=== PATIENT | female | born 1965 | race Two or more races ===

== ENCOUNTER 2024-11-16 07:12 | Emergency (ER) | payer MEDICARE, SELFPAY ==
[2024-11-16 07:13] VITALS: BMI 30.2
[2024-11-16 07:26] VITALS: BP 147/96; PULSE 94; RESP 19; TEMP 37.2; O2SAT 96
--- NOTE | 2024-11-16 07:32 | XR_ITS ---
Examination: PA lateral chest 2 views Technique: Upright PA lateral chest 2 views Exam date and time: November 16, 2024 0747 hrs. Indications: Coughing fever beginning 5 days ago. Findings: Normal heart size CABG No pneumonia or pulmonary edema Impression: No pneumonia identified
--- NOTE | 2024-11-16 07:33 | PD.EDRME ---
Rapid Medical Screening Exam RME Arrival date/time: 11/16/24 07:12 This is a 59-year-old female history of liver transplant on immunosuppressants presents to the emergency department with complaints of bodyaches, fever fatigue and a cough. I have greeted and performed a focused initial assessment of this patient. Initial appropriate labs ordered at this time. A comprehensive ED assessment and evaluation of the patient and analysis of all test and completion of medical decision making process will be conducted by additional ED provider. Chief Complaint: Flu Like Symptoms Time Seen by Provider: 11/16/24 07:21 Vital signs: Vital Signs Temperature 99.0 F 11/16/24 07:26 Pulse Rate 94 11/16/24 07:26 Respiratory Rate 19 11/16/24 07:26 Blood Pressure 147/96 H 11/16/24 07:26 Pulse Oximetry (%) 96 11/16/24 07:26 Oxygen Delivery Method Room Air 11/16/24 07:26
[2024-11-16] MEDS: ACETAMINOPHEN 500 MG TABLET 1000 MG PO (07:37)
[2024-11-16 08:07] LABS: Collection Type, Urine Clean Catch
[2024-11-16 08:10] LABS: Basophils % (Auto) 0 % (0-2.5); Eosinophils # (Auto) 0.1 Thou/mm3 (0.0-0.5); Eosinophils % (Auto) 1 % (0-10); Hematocrit 40.7 % (36.0-46.0); Hemoglobin 13.7 g/dL (12.0-16.0); Immature Granulocytes % (Auto) 0 % (0-0); Immature Granulocytes Auto 0.03 Thou/mm3 (0.00-0.00); Lymphocytes # (Auto) 0.9 Thou/mm3 (1.0-4.8); Lymphocytes % (Auto) 10 % (10-50); Mean Corpuscular HGB Conc 33.7 g/dl (31.0-37.0); Mean Corpuscular Hemoglobin 27.8 pg (25.0-35.0); Mean Corpuscular Volume 83 fL (80-100); Monocytes # (Auto) 0.5 Thou/mm3 (0.0-0.8); Monocytes % (Auto) 5 % (0-12); Neutrophils # (Auto) 7.1 Thou/mm3 (1.8-7.7); Neutrophils % (Auto) 83 % (37-80); Nucleated Red Blood Cell % 0 /100 WBC (0); Platelet Count 142 Thou/mm3 (140-440); RDW Standard Deviation 38.2 fL (36.4-46.3); Red Blood Count 4.93 Miln/mm3 (4.00-5.20); White Blood Count 8.5 Thou/mm3 (3.6-11.0)
[2024-11-16 08:17] LABS: Bacteria,Urine Rare; Bilirubin,Urine Negative (Negative); Blood,Urine 1+ (Negative); Clarity,Urine Clear (Clear/Hazy); Color,Urine Lt-Yellow (Lt Yel-Yel); Glucose, Urine Negative (Negative); Ketones,Urine Negative (Negative); Leukocyte Esterase,Urine Negative (Negative); Nitrite,Urine Negative (Negative); Protein,Urine Trace (Neg - Trace); RBC,Urine 4 /hpf (0-3); Specific Gravity,Urine 1.012 (1.001-1.035); Squamous Epithelial Cell,Urine 3 /hpf (0-5); Urobilinogen,Urine Negative mg/dL (0.0-1.0); WBC,Urine 3 /hpf (0-5)
[2024-11-16 08:31] LABS: Alanine Aminotransferase 16 U/L (10-49); Albumin, Serum 5.1 gm/dL (3.4-4.8); Albumin/Globulin Ratio 1.4 (1.2-2.2); Alkaline Phosphatase 199 U/L (46-116); Anion Gap 7 (7-16); Aspartate Amino Transferase 19 U/L (0-34); BUN/Creatinine Ratio 15 Ratio (12-20); Bilirubin,Total 0.5 mg/dL (0.3-1.2); Blood Urea Nitrogen 15 mg/dL (9-23); Calcium 9.9 mg/dL (8.3-10.6); Calcium (Corrected) 9.9 mg/dL (8.5-10.1); Carbon Dioxide 24.6 mMol/L (20.0-31.0); Chloride 102 mMol/L (98-107); Estimated Creatinine Clearance 54.5 mL/min (>60); Globulin 3.7 gm/dL (2.3-3.5); Glucose 179 mg/dL (74-106); Lipase 74 U/L (12-53); Osmolality,Calculated 273 (275-295); Potassium 4.4 mMol/L (3.4-5.1); Sodium 134 mMol/L (136-145); Total Protein 8.8 gm/dL (5.7-8.2); eGFR > 60 See Note
--- NOTE | 2024-11-16 09:03 | EDNOTE_ITS ---
Upper Respiratory Inf. RME/HPI General Chief Complaint: Flu Like Symptoms Stated Complaint: FLU SYMPTOMS FOR 5 DAYS Time Seen by Provider: 11/16/24 07:21 Source: patient Arrival date/time: 11/16/24 07:12 this is a 59-year-old female significant past medical history of bodyaches, fever rhinorrhea for 4 days. Patient denies any other associated symptoms or aggravating factors. No modifying factors, no radiation, no migration. No reported chest pain, dyspnea Mode of arrival: ambulatory RME / HPI RME / HPI Narrative: 11/16/24 07:12 This is a 59-year-old female history of liver transplant on immunosuppressants presents to the emergency department with complaints of bodyaches, fever fatigue and a cough. I have greeted and performed a focused initial assessment of this patient. Initial appropriate labs ordered at this time. A comprehensive ED assessment and evaluation of the patient and analysis of all test and completion of medical decision making process will be conducted by additional ED provider. Related Data Home Medications ?Medication ?Instructions ?Recorded ?Confirmed metformin 500 mg tablet,extended 500 mg PO BID 06/07/19 09/08/20 release 24 hr tacrolimus 1 mg capsule, 3 mg PO QAM 06/07/19 09/08/20 immediate-release ursodiol 300 mg capsule 900 mg PO BID 06/07/19 09/08/20 metoprolol tartrate 25 mg tablet 12.5 mg PO BID 06/08/19 09/08/20 magnesium 250 mg tablet 500 mg PO BID 02/08/20 09/08/20 mycophenolate mofetil 500 mg 1,000 mg PO BID 02/08/20 09/08/20 tablet (CellCept) tacrolimus 1 mg capsule, 4 mg PO HS 09/08/20 09/08/20 immediate-release Previous Rx's ?Medication ?Instructions ?Recorded clopidogrel 75 mg tablet (Plavix) 75 mg PO QDAY #30 tabs 09/12/20 Allergies Allergy/AdvReac Type Severity Reaction Status Date / Time Iodinated Contrast Media Allergy Severe Difficulty Verified 11/16/24 07:16 Breathing Review of Systems Review of Systems Systems Reviewed: All systems reviewed, normal except as documented Narrative Review of Systems: Gen: + fever, no chills, no weight loss, + Body aches +congestion, no sore throat PULM: No shortness of breath, no cough, no congestion CV: No chest pain, no dyspnea on exertion, no palpitations GI: No nausea, no vomiting, no diarrhea, no pain, no constipation : No frequency, no urgency,? no dysuria Musc/skel: No joint pain, no back pain Skin: No rash? Psyc: No hallucinations, no depression Heme/Lymph: No easy bleeding or bruising tendencies Neuro: No weakness, no headache ED Exam Narrative Physical exam: General: Sittiing in Exam table in no acute distress, answering questions appropriately HENT: normocephalic, atraumatic, EOMI, PERRLA, moist mucous membranes Chest: chest wall is nontender Cardiac: regular rate and rhythm, normal S1 and S2, no murmurs, rubs, or gallops, capillary refill ?2 seconds Pulmonary: clear to auscultation bilaterally, no wheezing, crackles, or rhonchi Abdominal: active bowel sounds, soft, nontender, nondistended Neuro: A&OX3, CN II-XII intact, sensation grossly intact bilaterally in UE and LE. Skin: no rashes, no ecchymosis Ext: no lower extremity edema Course Quality Measures none Orders Category Date Time Status Bedside COVID-19 Antigen Test NOW Care 11/16/24 07:32 Completed Bedside Influenza A&B Antigen Test NOW Care 11/16/24 07:32 Completed XR chest 2V Stat Exams 11/16/24 07:32 Completed CBC Stat Lab 11/16/24 08:01 Completed Comprehensive Metabolic Panel Stat Lab 11/16/24 08:01 Completed Lipase Stat Lab 11/16/24 08:01 Completed Urinalysis Stat Lab 11/16/24 07:46 Completed Acetaminophen Tab [Tylenol ES Tab] Med 11/16/24 07:32 Discontinued 1,000 mg PO X1 ONE Vital Signs Vital signs: Vital Signs Temperature 99.0 F 11/16/24 07:26 Pulse Rate 94 11/16/24 07:26 Respiratory Rate 19 11/16/24 07:26 Blood Pressure 147/96 H 11/16/24 07:26 Pulse Oximetry (%) 96 11/16/24 07:26 Oxygen Delivery Method Room Air 11/16/24 07:26 Upper Respiratory Infection MDM Narrative MDM Narrative:: Patient presents with symptoms and exam consistent with influenza. The pros and cons of taking Tamiflu were discussed with the patient. Joint decision making was made to not take Tamiflu. patient did call her liver transplant doctor and agrees with Tamiflu medication Tamiflu medication sent to pharmacy? Patient is non-toxic appearing, appears to be well-hydrated and is breathing comfortably, without respiratory distress. No pneumonia visible on x-ray. Patient is appropriate for outpatient management with anti-pyretics and supportive care. Patient is comfortable with plan. Patient to follow up with PMD in 2 days. Strict return to ED precautions given. ?Patient verbalized understanding. Patient data External records reviewed:: [facility] previous records Clinical information provided by:: patient Social determinants that could affect healthcare access:: none Patient has the following chronic illnesses:: diabetes, liver How is presenting disease/condition affected by chronic disease/condition?: une ffected by Evaluation data The following diagnostics were reviewed and interpreted by me:: lab results and radiology exam(s) Lab and/or radiology exams considered but not ordered:: no Interpretation Summary: +influenza A Examination: PA lateral chest 2 views Technique: Upright PA lateral chest 2 views Exam date and time: November 16, 2024 0747 hrs. Indications: Coughing fever beginning 5 days ago. Findings: Normal heart size CABG No pneumonia or pulmonary edema Impression: No pneumonia identified Medications / Prescriptions Medications or Prescriptions considered but not ordered:: yes Tamiflu no antibiotics Medication administrations:: Medication Administration History Discontinued Medications Acetaminophen (Acetaminophen 500 Mg Tablet) 1,000 mg PO X1 ONE Stop: 11/16/24 07:33 Last Admin: 11/16/24 07:37 Dose: 1,000 mg Documented By: FC all medications administered and effective Consultations Consultation(s) initiated? (list below): No Diagnosis Upper Respiratory Differential Diagnosis: upper respiratory infection, sinusitis, viral infection, bronchitis, influenza and pharyngitis Most likely diagnosis given after review of the tests above:: influenza A Admission Indicated Admission indicated?: not indicated Admission Request Was there a request for admission?: No Disposition Plan Disposition Plan: Discharge Discharge Attestation Discharge Attestation: The patient and all family members were given an opportunity to ask questions and understood the discharge instructions. Discharge instructions specifically effects, indications for sooner follow up or return to the emergency department, and the expected course of current diagnosis. Patient condition: Stable Discharge Plan Plan Patient Disposition: HOME (Self Care) Patient condition on transfer: Stable Prescriptions/Referrals Prescriptions/Med Rec: No Action tacrolimus 1 mg capsule 3 mg PO QAM metformin 500 mg tablet extended release 24 hr 500 mg PO BID Patient Comments: TK 1 T PO QD ursodiol 300 mg Capsule 900 mg PO BID metoprolol tartrate 25 mg Tablet 12.5 mg PO BID tacrolimus 1 mg Capsule 4 mg PO HS clopidogrel [Plavix] 75 mg Tablet 75 mg PO QDAY Qty: 30 0RF mycophenolate mofetil [CellCept] 500 mg Tablet 1,000 mg PO BID magnesium 250 mg Tablet 500 mg PO BID Referrals: Juan Jose Huynh FNP-C [Primary Care Provider] - In 1 week Problem List Clinical Impression: Influenza A Patient/Caregiver Discharge Instructions Discharge Activity: activity as tolerated Education Materials: ED Influenza (Adult) Additional Instructions: Your rapid influenza test was positive. Start Tamiflu, antipyretics to pharmacy. Advised to increase hydration, warm tea and chicken rice soup can mover helper for throat pain. Please follow-up with your clinic 3-day follow-up. If you develop any type of respiratory distress or change in condition please go immediately to nearest emergency department Print Language: [place] Citizen Stand Alone Forms: Gabby Award Info., Patient Portal Info Letter PATRICIA/MATRIX INSPECTOR Supervising Physician PATRICIA/ROCIO Supervising Physician: Dr De Guzman
[2024-11-16 10:02] VITALS: BP 114/77; PULSE 88; RESP 20; TEMP 37.6; O2SAT 96
== END 2024-11-16 10:04 | disposition home or self-care (01) ==
PROVIDERS: Nurse Practitioner Primary Care; Emergency Provider Emergency Medicine; PCP Nurse Practitioner Family
DX: J10.1 Influenza due to other identified influenza virus with other respiratory manifestations (principal)
CPT/HCPCS: 36415; 71046; 80053; 81001; 83690; 85025; 87400; 87811; 99283; A9270

== ENCOUNTER 2025-10-30 07:30 | Observation (INO) | payer MEDICARE, SELFPAY ==
[2025-10-30 07:53] VITALS: BP 96/64; PULSE 91; RESP 16; TEMP 36.8; O2SAT 96; BMI 28.5
--- NOTE | 2025-10-30 08:09 | EKG_ITS ---
[facility] Test Date: 2025-10-30 Pat Name: RUDDY COURTNEY Department: Room: - Gender: Female Finance Officer: : 1965 Requested By: Soni Monae Order Number: [id number] Reading MD: Soni Monae Measurements Intervals [place] Rate: 78 P: 39 MO: 144 QRS: 8 QRSD: 89 T: 20 QT: 360 QTc: 410 Interpretive Statements SINUS RHYTHM Compared to ECG 03/04/2024 20:58:30 Myocardial infarct finding no longer present /store/S0/[id number]/ecg/[id number].pdf
--- NOTE | 2025-10-30 08:09 | XR_ITS ---
EXAMINATION: AP chest single view TECHNIQUE: AP portable upright chest single view Date and time: October 30, 2025, 0831 hours INDICATIONS: Chest pain today. FINDINGS: Normal heart size CABG No pneumonia or pulmonary edema. Moderate osteopenia IMPRESSION: No active disease
[2025-10-30] MEDS: ONDANSETRON INJ 2 MG/ML INJ 2 ML 4 MG IVP (08:28)
[2025-10-30 08:31] VITALS: PULSE 82
[2025-10-30 08:44] LABS: Collection Type, Urine Clean Catch
[2025-10-30 08:51] LABS: Basophils # (Auto) 0.0 Thou/mm3 (0.0-0.2); Basophils % (Auto) 0 % (0-2.5); Eosinophils # (Auto) 0.2 Thou/mm3 (0.0-0.5); Eosinophils % (Auto) 2 % (0-10); Hematocrit 45.3 % (36.0-46.0); Hemoglobin 15.3 g/dL (12.0-16.0); Immature Granulocytes Auto 0.04 Thou/mm3 (0.00-0.00); Lymphocytes # (Auto) 1.7 Thou/mm3 (1.0-4.8); Lymphocytes % (Auto) 15 % (10-50); Mean Corpuscular HGB Conc 33.8 g/dl (31.0-37.0); Mean Corpuscular Hemoglobin 28.2 pg (25.0-35.0); Mean Corpuscular Volume 84 fL (80-100); Monocytes # (Auto) 0.9 Thou/mm3 (0.0-0.8); Monocytes % (Auto) 8 % (0-12); Neutrophils # (Auto) 8.4 Thou/mm3 (1.8-7.7); Neutrophils % (Auto) 75 % (37-80); Nucleated Red Blood Cell # 0.00 Thou/mm3 (0.00-0.00); Nucleated Red Blood Cell % 0 /100 WBC (0); Platelet Count 195 Thou/mm3 (140-440); RDW Standard Deviation 40.5 fL (36.4-46.3); Red Blood Count 5.42 Miln/mm3 (4.00-5.20); White Blood Count 11.2 Thou/mm3 (3.6-11.0)
--- NOTE | 2025-10-30 08:51 | EDNOTE_ITS ---
ED General RME/HPI General Chief complaint: Chest Pain Stated complaint: CHEST PAIN, LIVER TRANSPLANT PT Time Seen by Provider: 10/30/25 08:03 Arrival date/time: 10/30/25 07:30 RME / HPI RME / HPI narrative: 60 year old female with history of CABG, diabetes, hyperlipidemia, s/p liver transplant 8 years ago (followed at [facility]) presents to the ED for multiple complaints. States 4 days ago she had Thanksgiving with family and ate spicy fo od, which she usually does not eat. Reportedly the following day Tuesday she noted to have abdominal discomfort, decreased appetite, frequently belching, hiccups, and very loose diarrhea (brown in color) that has persisted. Additionally complains of a pain to her collar bones beginning 1 week ago which she applied Beng[place] cream with some relief. In the last 2 days patient reports feeling globally weak, losing her balance while walking, and feeling dizzy. Denies fevers, chills, sweats. Denies chest pain, cough, shortness of breath. Related Data Home Medications ?Medication ?Instructions ?Recorded ?Confirmed metformin 500 mg tablet,extended 500 mg PO BID 9 09/08/20 release 24 hr tacrolimus 1 mg capsule, 3 mg PO QAM 06/07/19 5 immediate-release ursodiol 300 mg capsule 900 mg PO BID 06/07/1910/30 metoprolol tartrate 25 mg tablet 12.5 mg PO BID 09/08/20 magnesium 250 mg tablet 500 mg PO BID 02/08/2009/08 mycophenolate mofetil 500 mg 1,000 mg PO BID 02/08/20 09/08/20 tablet (CellCept) tacrolimus 1 mg capsule, 4 mg PO HS 09/08/20 09/08/20 immediate-release aspirin 81 mg tablet,delayed 81 mg PO QDAY 10/30/25 release (Adult Low Dose Aspirin) atorvastatin 40 mg tablet 40 mg PO .qhs 10/30/2510/30 empagliflozin 10 mg tablet 10 mg PO QAM 10/30/2510/30 (Jardiance) ezetimibe 10 mg tablet 10 mg PO .qhs 10/30/2510/30 lisinopril 2.5 mg tablet 2.5 mg PO QDAY 10/30/2502/19 metoprolol succinate 25 mg 25 mg PO DAILY 10/30/2502/19 tablet,extended release 24 hr semaglutide 2 mg/dose (8 mg/3 mL) 0.25 mg subcut QWEEK 10/30/25 10/30/25 subcutaneous pen injector (Ozempic) semaglutide 2 mg/dose (8 mg/3 mL) 0.75 mg subcut 10/30 subcutaneous pen injector (Ozempic) Previous Rx's ?Medication ?Instructions ?Recorded clopidogrel 75 mg tablet (Plavix) 75 mg PO QDAY #30 ta bs 09/12/20 Allergies Allergy/AdvReac Type Severity Reaction Status Date / Time Iodinated Contrast Media Allergy Severe Difficulty Verified 10/30/25 07:35 Breathing Review of Systems Review of Systems Systems Reviewed: All systems reviewed, normal except as documented Past Medical History Past Medical History CARDIAC: Positive Cardiac Disorders and Hypertension GASTROINTESTINAL: Positive Gastrointestinal Disorders, Hepatitis, Cirrhosis and Pancreatitis GENITOURINARY: Positive Genitourinary Disorders and Renal Disease REPRODUCTIVE: Positive Previous Pregnancies MUSCULOSKELETAL: Positive Musculoskeletal Disorders and Rheumatoid Arthritis ENDOCRINE: Positive Endocrine Disorders and Diabetes Mellitus Type 2 HEMATOLOGIC: Positive Blood Disorders and Anemia OTHER HISTORY: Positive Blood Transfusions, Anesthesia Reactions and Organ Transplant Family History FAMILY HISTORY: Positive Family Cardiac Disorders, Family Gastrointestinal Problems and Family Cancer Surgical History SURGICAL: Positive Throat Surgery, Tubal Ligation, Section and Organ Transplant Social History SMOKING STATUS: Never smoker ED Exam Narrative Physical exam: GENERAL APPEARANCE: alert and oriented x 4, well-developed, well-nourished, no acute distress HEENT: Normocephalic, atraumatic; pupils equal, round, reactive to light; EOMI; mucous membranes pink, moist; oropharynx clear NECK: Supple LUNGS: CTABL; no wheezes, no rales, no rhonchi HEART: Regular rate, regular rhythm; normal S1, S2; no murmurs ABDOMEN: non distended; normal BS; soft, no tenderness, no guarding, no rebound; no masses, no organomegaly, no hernia EXTREMITIES: atraumatic; no edema NEUROLOGIC: awake; alert and oriented x4; cranial nerves II-XII grossly intact; no focal sensory or motor deficits PSYCHIATRIC: appropriate mood and affect SKIN: warm, dry, normal color; no rashes Course Quality Measures none Orders Category Date Time Status Patient Condition Routine Admission 10/30/25 14:[address] in Observation Status Routine Admission 10/30/25 14:26 Active Activity as Tolerated Routine Care 10/30/25 14:28 Ordered Bedside Blood Glucose ACHS Care 10/30/25 14:37 Active Conditioning Room Worker NOW Care 10/30/25 08:09 Active EKG (ED ONLY) *Do not use* NOW Care 10/30/25 08:09 Completed Flu & Pneumonia Vaccine Screen ONCE Care 10/30/25 14:30 Active Miscellaneous Nursing Order NOW Care 10/30/25 14:34 Active Notify provider NEEDED Care 10/30/25 14:24 Active Strict Intake and Output Routine Care 10/30/25 14:31 Ordered Diet Cardiac Diet 10/30/25 Dinner Active EKG (ED Only) Stat Exams 10/30/25 08:09 Draft XR chest 1V portable Stat Exams 10/30/25 08:09 Completed B-Type Natriuretic Peptide Stat Lab 10/30/25 08:30 Completed CBC AM DRAW Lab 10/31/25 05:00 Ordered CBC AM DRAW Lab 11/01/25 05:00 Ordered CBC AM DRAW Lab 11/02/25 05:00 Ordered CBC Stat Lab 10/30/25 08:30 Completed Comprehensive Metabolic Panel AM DRAW Lab 10/31/25 05:00 Ordered Comprehensive Metabolic Panel AM DRAW Lab 11/01/25 05:00 Ordered Comprehensive Metabolic Panel AM DRAW Lab 11/02/25 05:00 Ordered Comprehensive Metabolic Panel Stat Lab 10/30/25 08:30 Completed Hemoglobin A1C [Glycohemoglobin w (eAG)] AM DRAW Lab 10/31/25 05:00 Ordered Lipase Stat Lab 10/30/25 08:30 Completed Magnesium AM DRAW Lab 10/31/25 05:00 Ordered Magnesium AM DRAW Lab 11/01/25 05:00 Ordered Magnesium AM DRAW Lab 11/02/25 05:00 Ordered Magnesium Stat Lab 10/30/25 08:30 Completed Partial Thromboplastin Time Stat Lab 10/30/25 08:30 Completed Phosphorous AM DRAW Lab 10/31/25 05:00 Ordered Phosphorous AM DRAW Lab 11/01/25 05:00 Ordered Phosphorous AM DRAW Lab 11/02/25 05:00 Ordered Prothrombin Time with INR Stat Lab 10/30/25 08:30 Completed Troponin I Stat Lab 10/30/25 08:30 Completed UA, C/S IF [Urinalysis, C/S if Indicated] Stat Lab 10/30/25 08:30 Completed Urine Culture Stat Lab 10/30/25 08:30 Received Acetaminophen Tab [Tylenol Tab] Med 10/30/25 14:30 Discontinued 650 mg PO Q6H PRN Acetaminophen Tab [Tylenol Tab] Med 10/30/25 14:34 Active 650 mg PO Q6H PRN Aspirin [Ecotrin] Med 10/31/25 09:00 Active 81 mg PO QDAY Atorvastatin Calcium [Lipitor] Med 10/30/25 21:00 Active 40 mg PO HS Dextrose 50% Syr [D50w Syringe Abboject] Med 10/30/25 14:37 Active 25 ml IV Q15MIN PRN Dextrose 50% Syr [D50w Syringe Abboject] Med 10/30/25 14:37 Active 50 ml IV Q15MIN PRN Glucagon Inj Med 10/30/25 14:37 Active 1 mg IM Q15MIN PRN Heparin Inj Med 10/30/25 22:00 Active 5,000 unit SC Q8HR INSULIN LISPRO (AdmeLOG) [HumaLOG] Med 10/30/25 17:00 Active See Protocol SC AC Magnesium Sulfate 2 GM Ivpb [Magnesium Sulfate Ivpb] Med 10/30/25 10:11 Discontinued 2 gm in 50 ml IV X1 Magnesium Sulfate 2 GM Ivpb [Magnesium Sulfate Ivpb] Med 10/30/25 14:45 Active 2 gm in 50 ml IV X1 Metoprolol Succinate Xl [Toprol Xl] Med 10/31/25 09:00 Active 25 mg PO DAILY Ondansetron Inj [Zofran Inj] Med 10/30/25 14:30 Active 4 mg IVP Q6H PRN Ondansetron Inj [Zofran Inj] Med 10/30/25 08:08 Discontinued 4 mg IVP X1 ONE POTASSIUM CHL 10 mEq IVPB [Kcl Ivpb] Med 10/30/25 10:11 Discontinued 10 meq in 100 ml IV Q1H Sodium Chloride 0.9% 1000 ml [Ns] 1,000 ml Med 10/30/25 10:11 Discontinued IV 999 mls/hr Tacrolimus [Prograf] Med 10/30/25 21:00 Active 1.5 mg PO BID Tacrolimus [Prograf] Med 10/30/25 21:00 Discontinued 1.5 mg PO BID Tacrolimus [Prograf] Med 10/31/25 09:00 Discontinued 3 mg PO QAM Code Status Routine Oth 10/30/25 14:24 Ordered Vital Signs Vital signs: Vital Signs Temperature 98.2 F 10/30/25 07:53 Pulse Rate 91 10/30/25 07:53 Respiratory Rate 16 10/30/25 07:53 Blood Pressure 96/64 10/30/25 07:53 Pulse Oximetry (%) 96 10/30/25 07:53 Oxygen Delivery Method Room Air 10/30/25 07:53 Pulse ox is 96% on room air which is adequate. Discharge Plan Plan Patient Disposition: Admit Acute Care w/in Hospital Problem List Clinical Impression: Acute kidney injury MDM Narrative MDM hospital course (for use when minimal MDM required): I, Ely Purdy, am scribing for and in the presence of Dr. Stewart. I reviewed outpatient labs the patient had performed on 10/03/2025, ordered by her regional engagement consultant Dr. Jessie Adames. Compared the labs to ones performed today which shows an acute kidney injury. 1134: Discussed todays findings with the patient. States she will get in contact with her transplant team and see if it is okay for the patient to be admitted here or transferred to [facility] for further management. 1320p: I spoke with hospitalist team for admission. Discussed patients PMHx, HPI, ED course, exam findings, labs, and radiology results. The hospitalist agree to accept the patient for admission. Clinical Information Provided by: patient Medical Records reviewed [facility] Meds/Rx considered, not ordered None Labs/Rad/Tests considered, not ordered None Chronic Illness/Social Conditions which may negatively complicate care or outcome(s)-explain: Liver disease (s/p liver transplant 8 years ago ) EKG Interpretation EKG #1: EKG Interpretation: EKG @ 08:46AM, normal sinus rhythm, rate 76, no STEMI. Labs Labs: see narrative above Imaging Imaging Interpretation(s): Ordering Physician: Soni Stewart MD Date of Service: 10/30/25 Procedure(s): XR chest 1V portable Accession Number(s): [id number] cc: Patrick Sousa MD; Soni Stewart MD~ EXAMINATION: AP chest single view TECHNIQUE: AP portable upright chest single view Date and time: October 30, 2025, 0831 hours INDICATIONS: Chest pain today. FINDINGS: Normal heart size CABG No pneumonia or pulmonary edema. Moderate osteopenia IMPRESSION: No active disease Dictated By: Patrick Sousa MD Signed By: <Electronically signed by Patrick Sousa MD in OV> 10/30/25 0924 Medication Administration(s) Medication Administration History Acetaminophen (Acetaminophen 325 Mg Tablet) 650 mg PO Q6H PRN PRN Reason: Fever >100.4 Stop: 11/29/25 14:29 Aspirin (Aspirin Ec 81 Mg Tabec) 81 mg PO QDAY DAPHNE Stop: 11/30/25 08:59 Atorvastatin Calcium (Atorvastatin Calcium 20 Mg Tablet) 40 mg PO HS [facility] Stop: 11/29/25 20:59 Dextrose (Dextrose 50%-Water Inj 50 Ml Syringe) 25 ml IV Q15MIN PRN PRN Reason: BG 50-70 responsive npo pt Stop: 11/29/25 14:36 Dextrose (Dextrose 50%-Water Inj 50 Ml Syringe) 50 ml IV Q15MIN PRN PRN Reason: BG <50 OR BG <70 & pt unresponsive Stop: 11/29/25 14:36 Glucagon (Glucagon Inj 1 Mg Vial) 1 mg IM Q15MIN PRN PRN Reason: BG <70, and no IV access Heparin Sodium (Porcine) (Heparin Sod Inj 5000 Unit/Ml Vial) 5,000 unit SC Q8HR [facility] Stop: 11/13/25 21:59 Magnesium Sulfate (Magnesium Sulfate Ivpb) 2 gm in 50 mls @ 25 mls/hr IV X1 ONE Stop: 10/30/25 16:44 Last Admin: 10/30/25 15:34 Dose: 25 mls/hr Documented By: BY Insulin Human Lispro (Insulin Lispro (Admelog) 1 Unit/0.01 Ml Unit) 0 unit SC AC [facility]; Protocol Stop: 11/29/25 16:59 Metoprolol Succinate (Metoprolol Succinate Xl 25 Mg Tabcr) 25 mg PO DAILY [facility] Stop: 11/30/25 08:59 Ondansetron HCl (Ondansetron Inj 2 Mg/Ml Inj 2 Ml) 4 mg IVP Q6H PRN; Protocol PRN Reason: NAUSEA OR VOMITING Stop: 11/29/25 14:29 Tacrolimus 0.5 mg/ Tacrolimus (1 mg) 1.5 mg PO BID [facility] Stop: 11/29/25 20:59 Discontinued Medications Acetaminophen (Acetaminophen 325 Mg Tablet) 650 mg PO Q6H PRN PRN Reason: Fever >101.5 Stop: 11/29/25 14:29 Sodium Chloride (Ns) 1,000 mls @ 999 mls/hr IV .Q1H1M ONE Stop: 10/30/25 11:11 Last Infusion: 10/30/25 12:03 Dose: Infused Documented By: Admin: 10/30/25 11:02 Dose: 999 mls/hr Documented By: VG Potassium Chloride (Kcl Ivpb) 10 meq in 100 mls @ 100 mls/hr IV Q1H DAPHNE Stop: 10/30/25 14:10 Last Admin: 10/30/25 16:00 Dose: 100 mls/hr Documented By: Infusion: 10/30/25 15:09 Dose: Infused Documented By: Admin: 10/30/25 14:09 Dose: 100 mls/hr Documented By: Infusion: 10/30/25 13:40 Dose: Infused Documented By: Admin: 10/30/25 12:40 Dose: 100 mls/hr Documented By: Infusion: 10/30/25 12:05 Dose: Infused Documented By: Admin: 10/30/25 11:05 Dose: 100 mls/hr Documented By: VG Magnesium Sulfate (Magnesium Sulfate Ivpb) 2 gm in 50 mls @ 25 mls/hr IV X1 ONE Stop: 10/30/25 12:10 Last Infusion: 10/30/25 13:03 Dose: Infused Documented By: Admin: 10/30/25 11:03 Dose: 25 mls/hr Documented By: VG Ondansetron HCl (Ondansetron Inj 2 Mg/Ml Inj 2 Ml) 4 mg IVP X1 ONE; Protocol Stop: 10/30/25 08:09 Last Admin: 10/30/25 08:28 Dose: 4 mg Documented By: BY Tacrolimus (Tacrolimus 1 Mg Capsule) 3 mg PO QAM [facility] Stop: 11/30/25 08:59 Tacrolimus (Tacrolimus 1 Mg Capsule) 1.5 mg PO BID [facility] Stop: 11/29/25 20:59 See above Diagnosis Diagnoses ruled out and/or further discussions: PEPITO
[2025-10-30 09:06] LABS: INR 1.1 (0.9-1.3); Partial Thromboplastin Time 31.3 Seconds (22.0-36.0); Prothrombin Time 11.4 Seconds (9.0-12.2)
[2025-10-30 09:10] LABS: Bilirubin,Urine 1+ (Negative); Blood,Urine Trace (Negative); Color,Urine Yellow (Lt Yel-Yel); Glucose, Urine 4+ (Negative); Ketones,Urine Negative (Negative); Leukocyte Esterase,Urine Positive (Negative); Nitrite,Urine Negative (Negative); PH,Urine 5.5 (5.0-7.0); Protein,Urine 1+ (Neg - Trace); Specific Gravity,Urine 1.030 (1.001-1.035); Urobilinogen,Urine Negative mg/dL (0.0-1.0)
[2025-10-30 09:11] LABS: Bacteria,Urine Rare; Hyaline Casts,Urine < 1 /hpf (0-1); RBC,Urine 5 /hpf (0-3); Squamous Epithelial Cell,Urine 8 /hpf (0-5); WBC,Urine 19 /hpf (0-5)
[2025-10-30 09:13] LABS: Clarity,Urine Hazy (Clear/Hazy); Culture Indicated,Urine Yes
[2025-10-30 09:19] LABS: Alanine Aminotransferase 10 U/L (10-49); Albumin, Serum 5.0 gm/dL (3.4-4.8); Albumin/Globulin Ratio 1.4 (1.2-2.2); Alkaline Phosphatase 180 U/L (46-116); Anion Gap 11 (7-16); Aspartate Amino Transferase 10 U/L (0-34); BUN/Creatinine Ratio 23 Ratio (12-20); Bilirubin,Total 1.1 mg/dL (0.3-1.2); Blood Urea Nitrogen 54 mg/dL (9-23); Calcium 9.7 mg/dL (8.3-10.6); Calcium (Corrected) 9.7 mg/dL (8.5-10.1); Carbon Dioxide 18.8 mMol/L (20.0-31.0); Chloride 106 mMol/L (98-107); Creatinine (Component) 2.3 mg/dL (0.6-1.3); Estimated Creatinine Clearance 22.7 mL/min (>60); Globulin 3.6 gm/dL (2.3-3.5); Glucose 148 mg/dL (74-106); Lipase 46 U/L (12-53); Magnesium 1.3 mg/dL (1.6-2.6); Osmolality,Calculated 289 (275-295); Potassium 3.8 mMol/L (3.4-5.1); Sodium 136 mMol/L (136-145); Total Protein 8.6 gm/dL (5.7-8.2); Troponin I < 0.020 ng/mL (0.0-0.045); eGFR 24 See Note
[2025-10-30 09:30] LABS: B-Type Natriuretic Peptide 23 pg/mL (0-100)
[2025-10-30] MEDS: SODIUM CHLORIDE 0.9% 1000 ML 1,000 ML 999 ML IV (11:02)
[2025-10-30] MEDS: Magnesium Sulfate 2 GM Ivpb 2 GM/50 ML BAG IV ×2 (11:03→15:34)
[2025-10-30] MEDS: POTASSIUM CHL 10 mEq IVPB 10 MEQ/100 ML BAG 100 MEQ IV ×4 (11:05→16:00)
[2025-10-30 11:50] VITALS: BP 132/78; PULSE 74; RESP 16; O2SAT 100
[2025-10-30 13:51] VITALS: BP 136/60; PULSE 100; RESP 16; O2SAT 97
[2025-10-30 14:10] VITALS: BP 112/72; PULSE 74; RESP 16; O2SAT 100
--- NOTE | 2025-10-30 15:24 | ESHP_ITS ---
<Statement entered by Nell Dahl MD - 11/11/25 09:18> I reviewed above note and agree with findings and plans. I have also personally examined the patient with medicine team and went over assessment and plan with medical team including internal revenue agent and resident physician. <Statement entered by Boom Temple MD - 10/30/25 15:55> Patient was examined and case was reviewed with team including attending physician. Note reviewed, I agree with most of its contents and agree with the patient's care as documented by Dr. Rodriguez 60-year-old female with past medical history of hypertension, diabetes, CAD status post CABG x 4, history of liver transplant (8 years ago) presents to the ED due to intractable nausea and vomiting for over 6 days. Patient unable to keep anything down. On labs found to have PEPITO volume down will admit as an observation for IV fluids and follow-up renal panel in the AM. Will resume her immunosuppressive medications. #Intractable nausea, diarrhea and vomiting #PEPITO #History of CAD status post CABG X4 #History of liver transplant #Hypertension #Diabetes #Hyperlipidemia Case discussed with my attending Dr. Nabila Temple MD PGY-2 Disclaimer: Despite multiple revisions, due to the dictation software being used, the document bellow may not be free of grammatical errors including phonetic/typographic errors. However, this does not deter from our commitment to providing health care in the patient's best interest in mind. Documentation for date of: 10/30/25 HPI History of Present Illness History of present illness: 60-year-old female with a medical history significant for a myocardial infarction in 2020, CABG, diabetes mellitus, hyperlipidemia, hepatitis C, hepatitis A, and liver transplant 8 years ago (followed at [facility]) presents with a 4-day history of intractable nausea and vomiting. The symptoms began after a Thanksgiving dinner, which included a large amount of spicy food that the patient typically does not tolerate. She reports multiple episodes of nonbloody vomiting and diarrhea, with the most recent episode of diarrhea occurring this morning. The patient also notes a decrease in appetite and has only been able to tolerate broth, with no solid foods. She feels weak due to the ongoing vomiting and diarrhea. Denies fever, chills, sweats, chest pain, cough, shortness of breath, or abdominal pain. Patient admitted for intractable nausea, vomiting, diarrhea, and PEPITO likely secondary to dehydration. ED Course: -Initial vitals were: BP 96/64, HR 91, RR 16, temp 98.2 ?F, O2 sat 96% on room air. -Labs significant for: WBC 11.2, bicarb 18.8, BUN 54, creatinine 2.3, eGFR 24, glucose 148, magnesium 1.3. -Imaging included: CXR negative for pneumonia and pulmonary edema. -In the ED, patient was given: Ondansetron 4 mg IV x 1, NS 1 L, magnesium 2 g x 1. Past Medical History: as above. Past Surgical History: two C-sections, surgery to remove throat nodules in 1991, liver transplant 8 years ago. Family History: non-contributory. Social History: - Smoking: former smoker. - Alcohol: history of alcohol use, last drink 17 years ago. - Illicit drugs: none. Current Medications: Metoprolol 25 mg p.o. twice daily, Ozempic injection every 7 days, ursodiol 300 mg p.o. twice daily, tacrolimus 1.5 mg p.o. twice daily, aspirin 81 mg p.o. daily, atorvastatin 40 mg p.o. daily, Jardiance 10 mg p.o. daily, ergocalciferol 1 capsule every 14 days, ezetimibe 10mg p.o. daily, lisinopril 2.5 mg p.o. daily, metformin 500 mg p.o. daily. Allergies: Iodinated contrast media. Review of Systems Review of Systems Narrative Review of Systems: All 13 review of systems are negative except as listed above in the HPI. Exam Vital Signs Temp Pulse Resp BP Pulse Ox O2 Del Method 98.2 F 74 16 112/72 100 Room Air 10/30/25 07:53 10/30/25 14:10 10/30/25 14:10 10/30/25 14:10 10/30/25 14:10 10/30/25 14:10 Narrative Exam Physical Exam General: Awake and in no acute distress. Conversational and non-toxic appearing. HEENT: Normocephalic, atraumatic, mucous membranes moist. Heart: Regular rate and rhythm, no murmurs. Non-labored respirations, symmetric chest rise, no use of accessory muscles. Lungs: Clear to auscultation with no wheezing or crackles. Abdomen: Soft, nondistended, nontender. No guarding or rebound tenderness. Neurologic: Alert and oriented x3, no gross neurological deficit, and patient able to move all 4 extremities. Extremities: No edema. Skin: No rash or ecchymoses. Psychiatric: Cooperative, appropriate mood and affect Results: Labs 10/30/25 08:30 10/30/25 08:30 Labs: Short CBC 10/30/25 Range/Units 08:30 WBC 11.2 H (3.6-11.0) Thou/mm3 Hgb 15.3 (12.0-16.0) g/dL Hct 45.3 (36.0-46.0) % Plt Count 195 (140-440) Thou/mm3 BMP 10/30/25 08:30 Sodium 136 Potassium 3.8 Chloride 106 Carbon Dioxide 18.8 L BUN 54 H Creatinine 2.3 H Glucose 148 H Calcium 9.7 Cardiac Enzymes 10/30/25 Range/Units 08:30 Troponin I < 0.020 (0.0-0.045) ng/mL Liver Function 10/30/25 Range/Units 08:30 Total Bilirubin 1.1 (0.3-1.2) mg/dL AST 10 (0-34) U/L ALT 10 (10-49) U/L Alkaline Phosphatase 180 H (46-116) U/L Albumin 5.0 H (3.4-4.8) gm/dL Urine 10/30/25 Range/Units 08:30 Urine Color Yellow (Lt Yel-Yel) Urine Clarity Hazy (Clear/Hazy) Urine pH 5.5 (5.0-7.0) Ur Specific Roosevelt 1.030 (1.001-1.035) Urine Protein 1+ A (Neg - Trace) Urine Glucose (UA) 4+ A (Negative) Quality Measures Quality Measures none Medications Home Medications and Allergies Home Medications ?Medication ?Instructions ?Recorded ?Confirmed ?Type tacrolimus 1 mg capsule, 3 mg PO QAM 06/07/19 5 History immediate-release ursodiol 300 mg capsule 900 mg PO BID 06/07/1910/30 History tacrolimus 1 mg capsule, 4 mg PO HS 09/08/20 10/30/25 History immediate-release aspirin 81 mg tablet,delayed 81 mg PO QDAY 10/30/25 History release (Adult Low Dose Aspirin) atorvastatin 40 mg tablet 40 mg PO .qhs 10/30/2510/30 History empagliflozin 10 mg tablet 10 mg PO QAM 10/30/2510/30 History (Jardiance) ezetimibe 10 mg tablet 10 mg PO .qhs 10/30/2510/30 History lisinopril 2.5 mg tablet 2.5 mg PO QDAY 10/30/2502/19 History lisinopril 2.5 mg tablet 2.5 mg PO QDAY 10/30/2502/19 History metoprolol succinate 25 mg 25 mg PO DAILY 10/30/2502/19 History tablet,extended release 24 hr semaglutide 2 mg/dose (8 mg/3 mL) 0.25 mg subcut QWEEK 10/30/25 10/30/25 History subcutaneous pen injector (Ozempic) Allergies Allergy/AdvReac Type Severity Reaction Status Date / Time Iodinated Contrast Media Allergy Severe Difficulty Verified 10/30/25 07:35 Breathing Visit Medications Acetaminophen (Acetaminophen 325 Mg Tablet) 650 mg PO Q6H PRN PRN Reason: Fever >100.4 Stop: 11/29/25 14:29 Aspirin (Aspirin Ec 81 Mg Tabec) 81 mg PO QDAY DAPHNE Stop: 11/30/25 08:59 Atorvastatin Calcium (Atorvastatin Calcium 20 Mg Tablet) 40 mg PO HS DAPHNE Stop: 11/29/25 20:59 Dextrose (Dextrose 50%-Water Inj 50 Ml Syringe) 25 ml IV Q15MIN PRN PRN Reason: BG 50-70 responsive npo pt Stop: 11/29/25 14:36 Dextrose (Dextrose 50%-Water Inj 50 Ml Syringe) 50 ml IV Q15MIN PRN PRN Reason: BG <50 OR BG <70 & pt unresponsive Stop: 11/29/25 14:36 Glucagon (Glucagon Inj 1 Mg Vial) 1 mg IM Q15MIN PRN PRN Reason: BG <70, and no IV access Heparin Sodium (Porcine) (Heparin Sod Inj 5000 Unit/Ml Vial) 5,000 unit SC Q8HR DAPHNE Stop: 11/13/25 21:59 Magnesium Sulfate (Magnesium Sulfate Ivpb) 2 gm in 50 mls @ 25 mls/hr IV X1 ONE Stop: 10/30/25 16:44 Insulin Human Lispro (Insulin Lispro (Admelog) 1 Unit/0.01 Ml Unit) 0 unit SC AC DAPHNE; Protocol Stop: 11/29/25 16:59 Metoprolol Succinate (Metoprolol Succinate Xl 25 Mg Tabcr) 25 mg PO DAILY [facility] Stop: 11/30/25 08:59 Ondansetron HCl (Ondansetron Inj 2 Mg/Ml Inj 2 Ml) 4 mg IVP Q6H PRN; Protocol PRN Reason: NAUSEA OR VOMITING Stop: 11/29/25 14:29 Tacrolimus 0.5 mg/ Tacrolimus (1 mg) 1.5 mg PO BID [facility] Stop: 11/29/25 20:59 Discontinued Medications Acetaminophen (Acetaminophen 325 Mg Tablet) 650 mg PO Q6H PRN PRN Reason: Fever >101.5 Stop: 11/29/25 14:29 Sodium Chloride (Ns) 1,000 mls @ 999 mls/hr IV .Q1H1M ONE Stop: 10/30/25 11:11 Last Infusion: 10/30/25 12:03 Dose: Infused Potassium Chloride (Kcl Ivpb) 10 meq in 100 mls @ 100 mls/hr IV Q1H DAPHNE Stop: 10/30/25 14:10 Last Admin: 10/30/25 14:09 Dose: 100 mls/hr Magnesium Sulfate (Magnesium Sulfate Ivpb) 2 gm in 50 mls @ 25 mls/hr IV X1 ONE Stop: 10/30/25 12:10 Last Infusion: 10/30/25 13:03 Dose: Infused Ondansetron HCl (Ondansetron Inj 2 Mg/Ml Inj 2 Ml) 4 mg IVP X1 ONE; Protocol Stop: 10/30/25 08:09 Last Admin: 10/30/25 08:28 Dose: 4 mg Tacrolimus (Tacrolimus 1 Mg Capsule) 3 mg PO QAM [facility] Stop: 11/30/25 08:59 Tacrolimus (Tacrolimus 1 Mg Capsule) 1.5 mg PO BID [facility] Stop: 11/29/25 20:59 Assessment & Plan Plan 60-year-old female with medical history significant for a myocardial infarction in 2019, CABG, diabetes mellitus, hyperlipidemia, hepatitis C, hepatitis A, and liver transplant 2017 admitted for intractable nausea, vomiting, diarrhea, and acute kidney injury likely secondary to volume depletion. #Intractable nausea, diarrhea and vomiting - Likely secondary to gastroenteritis. - Multiple episodes of nonbloody vomiting and diarrhea for the past four days. - Unable to tolerate solid foods. - Symptoms have resulted in weakness, likely due to dehydration and inadequate intake. - IV hydration with 1L NS given in the ED. - Patient reported significant improvement following she was given ondansetron. Plan: * Ondansetron 4 mg IV PRN for nausea and vomiting. * Monitor for electrolyte imbalances and replete as necessary. * Advance diet as tolerated. * Encourage oral hydration as the patient tolerates. * Monitor renal function with repeat renal panel, given the patient's PEPITO and dehydration. #Acute kidney injury - Likely secondary to volume depletion due to vomiting and diarrhea. - Admission labs: BUN 54, Cr 2.3, eGFR 24. - Baseline Cr: 1.0 (per chart review). - BUN:Cr ratio 23, suggestive of a prerenal etiology. Plan: * Daily renal panel to trend BUN, Cr, and electrolytes. * Avoid nephrotoxins. * Renally dose meds as appropriate. * Strict I&Os, monitor urine output closely. * Monitor for signs of volume overload or uremic symptoms. #Type 2 diabetes - On admission initial glucose 148. - Home medications include Jardiance, Ozempic, and Metformin. - Patient has been unable to take home medications for the past few days due to persistent vomiting. - Last hemoglobin A1c was 6.7 in 2019. Plan: * Held home medications. * Bedside blood glucose checks ACHS. * Insulin lispro sliding scale, adjusted as necessary. * Carb consistent low diet. * Reassess blood glucose control and adjust insulin regimen accordingly. * Hemoglobin A1c pending. #Hypertension Plan: * Resumed home metoprolol 25mg PO daily. * Held home lisinopril as patient has PEPITO. #History of liver transplant - Liver transplant at [facility] March 2017. - Has history of alcohol use, hepatitis C (treated with ribavirin), and heroin use. Plan: * Resume home tacrolimus 1.5 mg twice daily as part of the patient's ongoing immunosuppressive regimen to prevent liver transplant rejection. * Continue close monitoring of liver function through LFTs. #History of CAD status post CABG #Hyperlipidemia - Echo performed on 09/10/20 prior to the CABG showed a left ventricular ejection fraction of 35%. - Takes ezetimibe 10mg PO QHS at home. Plan: * Resumed home aspirin 81mg QD. * Resumed home atorvastatin 40mg PO QHS. * Lipid panel pending. Health Maintenance Disposition: med tele DVT prophylaxis: Heparin 5,000 U subQ GI prophylaxis: not indicated Diet: cardiac carb consistent low Robert: none Lines: Peripheral IV CODE STATUS: FULL Patient plan of care was discussed with the senior resident, Dr. Derek Temple, and attending physician, Dr. Dahl. Brandon Rodriguez, PGY-1
--- NOTE | 2025-10-30 15:45 | PC.NURSE ---
report given to marisol
[2025-10-30 16:22] VITALS: BMI 28.5
[2025-10-30 20:00] VITALS: BP 113/68; PULSE 72; RESP 16; TEMP 36.9; O2SAT 98
[2025-10-30] MEDS: ATORVASTATIN CALCIUM 20 MG TABLET 40 MG PO (20:56)
[2025-10-31] VITALS: BP 116/63; PULSE 64; RESP 16; TEMP 36.6; O2SAT 97
[2025-10-31 04:00] VITALS: BP 109/67; PULSE 69; RESP 16; TEMP 36.6; O2SAT 98
[2025-10-31 05:52] LABS: Basophils # (Auto) 0.0 Thou/mm3 (0.0-0.2); Basophils % (Auto) 0 % (0-2.5); Eosinophils # (Auto) 0.1 Thou/mm3 (0.0-0.5); Eosinophils % (Auto) 2 % (0-10); Hematocrit 39.8 % (36.0-46.0); Hemoglobin 13.7 g/dL (12.0-16.0); Immature Granulocytes Auto 0.02 Thou/mm3 (0.00-0.00); Lymphocytes # (Auto) 1.5 Thou/mm3 (1.0-4.8); Lymphocytes % (Auto) 21 % (10-50); Mean Corpuscular HGB Conc 34.4 g/dl (31.0-37.0); Mean Corpuscular Hemoglobin 29.2 pg (25.0-35.0); Mean Corpuscular Volume 85 fL (80-100); Monocytes # (Auto) 0.6 Thou/mm3 (0.0-0.8); Monocytes % (Auto) 8 % (0-12); Neutrophils # (Auto) 4.8 Thou/mm3 (1.8-7.7); Neutrophils % (Auto) 68 % (37-80); Nucleated Red Blood Cell # 0.00 Thou/mm3 (0.00-0.00); Nucleated Red Blood Cell % 0 /100 WBC (0); Platelet Count 147 Thou/mm3 (140-440); RDW Standard Deviation 40.9 fL (36.4-46.3); Red Blood Count 4.69 Miln/mm3 (4.00-5.20); White Blood Count 7.0 Thou/mm3 (3.6-11.0)
[2025-10-31 06:35] LABS: Glucose Estimated Average 137 mg/dL (80-131); Hemoglobin A1C 6.4 % Hgb (4.8-6.0)
[2025-10-31 06:43] LABS: Alanine Aminotransferase < 7 U/L (10-49); Albumin, Serum 4.3 gm/dL (3.4-4.8); Albumin/Globulin Ratio 1.4 (1.2-2.2); Alkaline Phosphatase 151 U/L (46-116); Anion Gap 10 (7-16); Aspartate Amino Transferase 12 U/L (0-34); BUN/Creatinine Ratio 26 Ratio (12-20); Bilirubin,Total 0.7 mg/dL (0.3-1.2); Blood Urea Nitrogen 36 mg/dL (9-23); Calcium 9.2 mg/dL (8.3-10.6); Calcium (Corrected) 9.2 mg/dL (8.5-10.1); Carbon Dioxide 17.8 mMol/L (20.0-31.0); Cardiac Risk Estimate 3.6 RATIO (3.7-5.6); Chloride 113 mMol/L (98-107); Cholesterol 113 mg/dL (132-200); Creatinine (Component) 1.4 mg/dL (0.6-1.3); Estimated Creatinine Clearance 37.4 mL/min (>60); Globulin 3.1 gm/dL (2.3-3.5); Glucose 128 mg/dL (74-106); HDL Cholesterol 31 mg/dL (40-60); LDL Cholesterol,Calculated 51 mg/dL (0-130); Magnesium 2.1 mg/dL (1.6-2.6); Osmolality,Calculated 291 (275-295); Phosphorous 2.8 mg/dL (2.4-5.1); Potassium 4.7 mMol/L (3.4-5.1); Sodium 141 mMol/L (136-145); Total Protein 7.4 gm/dL (5.7-8.2); Triglycerides 155 mg/dL (30-150); eGFR 43 See Note
[2025-10-31 07:50] VITALS: BP 126/82; PULSE 76; RESP 18; TEMP 36.6; O2SAT 96
[2025-10-31] MEDS: ASPIRIN EC 81 MG TABEC PO (08:17)
[2025-10-31 12:00] VITALS: BP 128/77; PULSE 74; RESP 18; TEMP 36.3; O2SAT 97
--- NOTE | 2025-10-31 12:08 | PC.NURSE ---
Patient wants to have lunch before she goes home. She will call when she is ready to go.
--- NOTE | 2025-10-31 15:01 | ESDS_ITS ---
<Statement entered by Nell Dahl MD - 11/11/25 09:18> I reviewed above note and agree with findings and plans. I have also personally examined the patient with medicine team and went over assessment and plan with medical team including internal specialist and resident physician. <Statement entered by Forest James MD - 10/31/25 20:26> In summary: 60-year-old female past medical history of hypertension, diabetes, CAD, s/p CABG x 4, history of liver transplant, admitted for intractable nausea and vomiting with PEPITO. She was managed medically with aggressive resuscitation. Her symptoms have resolved and her kidney function has improved. She is advised to discuss adjusting her diabetes medication including OZEMPIC which likely contributing to her nausea and vomiting. Patient reports improvement and resolution of her symptoms on the day of discharge. Highly advised to return to ED or seek emergency if her symptoms persist, worsen or new symptoms develop. I?ve reviewed the note and agree with this assessment and plan, with the exceptions outlined above. I personally went over the labs, imaging, home medications, and prior records, and examined the patient. The case was also reviewed with the attending physician. Please note: this document was transcribed using voice recognition technology; minor inaccuracies may be present. Forest James DO PGY II Planned Discharge Date 10/31/25 DS: Providers Provider Date of admission: 10/30/25 15:00 Primary care physician: Alexsander Tai Admitting Provider: Nell Dahl MD Attending Provider on Admission: Nell Dahl MD Consults: 10/30/25 16:52 Referral Registered Dietitian Routine Comment: Attending Provider on DC: Nell Dahl MD Discharging Provider: Brandon Rodriguez DO Anticipated date of discharge: 10/31/25 DS: Diagnosis Problem List Completed Was Problem List Reviewed/Reconciled?: Yes Hospital Course Hospital Course Hospital course: 60-year-old female with medical history significant for a myocardial infarction in 2019, CABG, diabetes mellitus, hyperlipidemia, hepatitis C, hepatitis A, and liver transplant 2017 admitted for four days of intractable nausea, vomiting, diarrhea, and acute kidney injury likely secondary to volume depletion. She also developed acute kidney injury from dehydration. In the ED, she was treated with 1L normal saline and ondansetron, resulting in significant symptomatic improvement. Renal function was closely monitored with renal panel, and medications were adjusted for her PEPITO. She resumed her home medications for hypertension, hyperlipidemia, and liver transplant immunosuppression. Patient is medically and physically stable for discharge. Diagnosis: #Intractable nausea, vomiting, and diarrhea #Acute kidney injury (likely prerenal due to volume loss) #Type 2 diabetes, poorly controlled due to acute illness #Hypertension #History of liver transplant #History of coronary artery disease, status post-CABG #Hyperlipidemia Discharge Plan: Follow up with primary care physician within 1 week of discharge. Follow up with transplant doctor with regards to your immunosuppresives. Please take your medications as prescribed. Should any symptoms recur or worsen patient is instructed to return to the ED. Case discussed with my senior resident Dr. James. Case discussed with my attending Dr. Dahl. Brandon Rodriguez DO PGY 1 Status at Discharge Overall status at discharge: patient is back to baseline Time Spent with Patient Time attestation: Total time spent providing and/or coordinating discharge services: Time spent: Greater than 30 minutes Exam Vital Signs Temp Pulse Resp BP Pulse Ox O2 Del Method 97.3 F 74 18 128/77 97 Room Air 10/31/25 12:10/31/25 12:10/31/25 12:10/31/25 12:10/31/25 12:10/31/25 12:00 Narrative Exam Physical Exam General: Awake and in no acute distress. Conversational and non-toxic appearing. HEENT: Normocephalic, atraumatic, mucous membranes moist. Heart: Regular rate and rhythm, no murmurs. Non-labored respirations, symmetric chest rise, no use of accessory muscles. Lungs: Clear to auscultation with no wheezing or crackles. Abdomen: Soft, nondistended, nontender. No guarding or rebound tenderness. Neurologic: Alert and oriented x3, no gross neurological deficit, and patient able to move all 4 extremities. Extremities: No edema. Skin: No rash or ecchymoses. Psychiatric: Cooperative, appropriate mood and affect Discharge Plan Plan Patient Disposition: HOME (Self Care) Patient condition on transfer: Stable Care Plan Goals: Follow up with primary care physician within 1 week of discharge Follow up with transplant doctor with regards to your immunosuppresives Please take your medications as prescribed Should any symptoms recur or worsen patient is instructed to return to the ED. Prescriptions/Referrals Prescriptions/Med Rec: Continued tacrolimus 1 mg capsule 3 mg PO QAM ursodiol 300 mg Capsule 900 mg PO BID tacrolimus 1 mg Capsule 4 mg PO HS aspirin [Adult Low Dose Aspirin] 81 mg tablet,delayed release (DR/EC) 81 mg PO QDAY atorvastatin 40 mg tablet 40 mg PO .qhs Jardiance 10 mg tablet 10 mg PO QAM ezetimibe 10 mg tablet 10 mg PO .qhs lisinopril 2.5 mg tablet 2.5 mg PO QDAY metoprolol succinate 25 mg tablet extended release 24 hr 25 mg PO DAILY Ozempic 2 mg/dose (8 mg/3 mL) pen injector 0.25 mg subcut QWEEK Rx Instructions: for 4 weeks lisinopril 2.5 mg tablet 2.5 mg PO QDAY Referrals: Alexsander Tai [Primary Care Provider] Patient/Caregiver Discharge Instructions Education Materials: Dehydration, Acute Kidney Failure Dc, ED Dehydration (Adult), ED Diet for Vomiting or ... Print Language: Kinyarwanda Stand Alone Forms: Gabby Award Info., Patient Portal Info Letter, Work/Release Restrictions Discharge Order Discharge Orders: Discharge (Routine); Ordered 10/31/25 Ordered By: Boom Temple Quality Discharge Quality Measures VTE prophylaxis
== END 2025-10-31 12:46 | disposition home or self-care (01) ==
LOC: SERX 11:00 → S3SX 16:42 → SERHOLD 10-31 06:33
PROVIDERS: Admitting Provider Internal Medicine; Emergency Provider Emergency Medicine; PCP Internal Medicine; Visit Provider Internal Medicine
DX: E86.0 Dehydration (principal); N17.9 Acute kidney failure, unspecified; I10 Essential (primary) hypertension; Z94.4 Liver transplant status; E78.5 Hyperlipidemia, unspecified; E11.65 Type 2 diabetes mellitus with hyperglycemia
CPT/HCPCS: 36415; 71045; 80053; 80061; 81001; 83036; 83690; 83735; 83880; 84100; 84484; 85025; 85610; 85730; 87086; 93005; 96365; 96366; 96375; 99284; G0378; J2405; J3475; J3480; J7030; J7507; A9270